=== PATIENT | female | born 1975 | race Caucasian/White ===

== ENCOUNTER → 2016-08-20 | Outpatient (REF) | payer OTHER | LOC: M SFHCWAGY 10:14 | PROVIDERS: ATTEND Nurse Practitioner Family | DX: Z12.4 Encounter for screening for malignant neoplasm of cervix (principal) ==

== ENCOUNTER → 2018-06-07 | Outpatient (CLI) | payer OTHER | LOC: M PLARAD 14:39 | DX: D18.09 Hemangioma of other sites (principal) | CPT/HCPCS: 78815 ==

== ENCOUNTER → 2019-01-26 | Outpatient (REF) | payer OTHER ==
[2019-02-01 14:22] LABS: HPV HYBRID CAPTURE II Negative (Negative)
== END ==
LOC: M LAB LCGH 11:55
PROVIDERS: ATTEND Obstetrics & Gynecology
DX: Z12.4 Encounter for screening for malignant neoplasm of cervix (principal)

== ENCOUNTER → 2021-11-04 | Outpatient (REF) | payer OTHER ==
[2021-11-04 19:30] LABS: APPEARANCE, URINE CLOUDY (CLEAR); BACTERIA, URINE AUTO 1+ (NEGATIVE); BILIRUBIN, URINE AUTO NEGATIVE (NEGATIVE); BLOOD, URINE BLOOD 1+ (NEGATIVE); COLOR, URINE YELLOW (YELLOW); GLUCOSE, URINE (UA) AUTO NEGATIVE (NEGATIVE); KETONE, URINE AUTO NEGATIVE (NEGATIVE); LEUKOCYTE ESTERASE, URINE AUTO 3+ (NEGATIVE); MUCUS, URINE SMALL (NEGATIVE); NITRITE, URINE AUTO NEGATIVE (NEGATIVE); PROTEIN, URINE AUTO NEGATIVE (NEGATIVE); RBC, URINE AUTO 34 /HPF (0-3); SPECIFIC GRAVITY URINE AUTO 1.005 (1.002-1.035); SQUAMOUS EPITHELIAL CELL UR AU 6 /HPF (0-6); UROBILINOGEN, URINE AUTO 0.2 mg/dL (0.0-2.0); WBC, URINE AUTO 51 /HPF (0-3)
== END ==
LOC: M LAB REF 18:36
PROVIDERS: ATTEND Physician Assistant Medical
DX: R30.0 Dysuria (principal)

== ENCOUNTER → 2022-02-16 | Outpatient (REF) | payer OTHER | LOC: M WUC 20:00 | PROVIDERS: ATTEND Physician Assistant | DX: N39.0 Urinary tract infection, site not specified (principal) ==

== ENCOUNTER → 2022-09-03 | Outpatient (CLI) | payer OTHER ==
[~2022-09-03] MED LIST: MIRT-10 PO; MONT10TA97 PO; ZOLO100T PO
== END ==
LOC: M LABSMTC 08:52
PROVIDERS: ATTEND Anesthesiology
DX: Z01.812 Encounter for preprocedural laboratory examination (principal); Z20.822 Contact with and (suspected) exposure to COVID-19

== ENCOUNTER 2022-09-08 08:16 | Observation (INO) | payer OTHER ==
[~2022-09-08] VITALS: Ht 172.7 cm; Wt 103.0 kg
[2022-09-08] VITALS (8 sets, daily range): BP systolic 129–164; BP diastolic 71–92
[~2022-09-08 08:16] MED LIST changes: +HEPARIN SOD (PORCINE) 5000UNITS/ML 1ML VIAL/SYRINGE SQ ONE; +ceFAZolin SOD 2 GM in IV 1 EA IV ONE
[2022-09-08] MEDS ORDERED: LR 1,000 ML IV SCH (09:00)
[2022-09-08] MEDS ORDERED: propofoL 200 MG/20 ML VIAL As Ordered ONE (09:27)
[2022-09-08] MEDS ORDERED: MIDAZOLAM INJ 2MG/2ML VIAL As Ordered ONE (09:27)
[2022-09-08] MEDS ORDERED: ONDANSETRON 4MG 2ML VIAL As Ordered ONE (09:27)
[2022-09-08] MEDS ORDERED: fentaNYL 100 MCG/2 ML INJECTION As Ordered ONE (09:27)
[2022-09-08] MEDS ORDERED: LIDOCAINE 2% 100MG/5ML SDV (FOR ANES.) As Ordered ONE (09:27)
[2022-09-08] MEDS ORDERED: BUPIVACAINE LIPOSOME/PF 1.3% 20ML VIAL (13.3MG/ML)(EXPAREL) As Ordered ONE (09:40)
[2022-09-08] MEDS ORDERED: GENTAMICIN SULF 80MG/2ML VIAL As Ordered ONE (09:40)
[2022-09-08] MEDS ORDERED: BUPIVACAINE HCL 0.25% 10ML VIAL As Ordered ONE (09:40)
[2022-09-08] MEDS ORDERED: LIDOCAINE 1% MDV 20ML VIAL As Ordered ONE (11:06)
[2022-09-08] MEDS ORDERED: EPINEPHrine INJ 1 MG/ML 1ML AMP As Ordered ONE (11:06)
[2022-09-08] MEDS ORDERED: ACETAMINOPHEN 1000MG 100ML IV BAG As Ordered ONE (11:11)
[2022-09-08] MEDS ORDERED: ROCURONIUM BROMIDE 50MG/5ML VIAL As Ordered ONE (11:37)
[2022-09-08] MEDS ORDERED: HYDROmorphone HCL 2MG/ML 1ML VIAL As Ordered ONE (11:57)
[2022-09-08] MEDS ORDERED: fentaNYL 100 MCG/2 ML INJECTION IV PRN (14:10)
[2022-09-08] MEDS ORDERED: ONDANSETRON 4MG 2ML VIAL IV PRN ×2 (14:10→14:35)
[2022-09-08] MEDS ORDERED: oxyCODONE 5MG TAB PO PRN (14:10)
[2022-09-08] MEDS ORDERED: METOCLOPRAMIDE INJ 10MG/2ML VIAL IV PRN (14:10)
[2022-09-08] MEDS ORDERED: HYDROMORPHONE HCL 0.5 MG/ 0.5 ML SYRINGE IV PRN (14:10)
[2022-09-08] MEDS ORDERED: PERCOCET 5MG/325MG TAB PO PRN (14:35)
[2022-09-08] MEDS ORDERED: ceFAZolin SOD 2 GM in IV 1 EA IV ONE (15:00)
[2022-09-08] MEDS: LR 1,000 ML IV SCH ×2 (17:11→21:16)
[2022-09-08] MEDS: ACETAMINOPHEN TAB 650MG DOSE (2X325MG) PO PRN (19:28)
[2022-09-09 02:22] VITALS: BP 114/65
[2022-09-09] MEDS: traMADol 50 MG TAB PO PRN ×2 (02:35→09:53)
[2022-09-09 05:29] VITALS: BP 115/66
[2022-09-09] MEDS: ACETAMINOPHEN TAB 650MG DOSE (2X325MG) PO PRN (05:44)
[2022-09-09 10:44] VITALS: BP 113/69
[2022-09-09] MEDS ORDERED: TRAM50TA2 PO (11:19)
== END 2022-09-09 12:15 | disposition home or self-care (01) ==
LOC: M SDC 08:16 → M MS5PR 08:17
PROVIDERS: ADMIT Plastic Surgery Surgery of the Hand; ATTEND Plastic Surgery Surgery of the Hand
DX: N62 Hypertrophy of breast (principal); F41.9 Anxiety disorder, unspecified; Z98.84 Bariatric surgery status; Z79.899 Other long term (current) drug therapy
CPT/HCPCS: 19318; 81025; 88305; 96365; 96375; C9290; J0131; J0171; J0690; J1100; J1170; J1580; J1644; J2250; J2405; J3010; S0020

== ENCOUNTER 2023-09-09 06:04 | Day surgery (SDC) | payer OTHER ==
[~2023-09-09] VITALS: Ht 172.7 cm; Wt 106.6 kg
[~2023-09-09 06:04] MED LIST changes: -HEPARIN SOD (PORCINE) 5000UNITS/ML 1ML VIAL/SYRINGE SQ ONE; +TRAM50TA2 PO; -ceFAZolin SOD 2 GM in IV 1 EA IV ONE
[2023-09-09] MEDS ORDERED: LR 1,000 ML IV SCH ×2 (06:25→09:15)
[2023-09-09] MEDS ORDERED: LIDOCAINE 2% 100MG/5ML SDV (FOR ANES.) As Ordered ONE (07:20)
[2023-09-09] MEDS ORDERED: ONDANSETRON 4MG 2ML VIAL As Ordered ONE (07:20)
[2023-09-09] MEDS ORDERED: propofoL 200 MG/20 ML VIAL As Ordered ONE (07:20)
[2023-09-09] MEDS ORDERED: dexmedeTOMIDine (4MCG/ML)200MCG/50ML BTL (PRECEDEX) As Ordered ONE (07:20)
[2023-09-09] MEDS ORDERED: MIDAZOLAM INJ 2MG/2ML VIAL As Ordered ONE (07:21)
[2023-09-09] MEDS ORDERED: fentaNYL 100 MCG/2 ML INJECTION As Ordered ONE (07:21)
[2023-09-09] MEDS: ceFAZolin SOD 2 GM in IV 1 EA IV ONE (07:37)
[2023-09-09] MEDS ORDERED: ACETAMINOPHEN 1000MG 100ML IV BAG As Ordered ONE (08:05)
[2023-09-09] MEDS ORDERED: GLYCOPYRROLATE INJ 0.2 MG/ML 2 ML VIAL As Ordered ONE (08:16)
[2023-09-09] MEDS: GENTAMICIN SULF 80MG/2ML VIAL As Ordered ONE (09:09)
[2023-09-09] MEDS ORDERED: fentaNYL 100 MCG/2 ML INJECTION IV PRN (09:15)
[2023-09-09] MEDS ORDERED: EPINEPHrine INJ 1 MG/ML 1ML AMP As Ordered ONE (09:34)
[2023-09-09] MEDS ORDERED: LIDOCAINE 1% MDV 20ML VIAL As Ordered ONE (09:34)
[2023-09-09] MEDS ORDERED: TRAM50TA2 PO (09:49)
[2023-09-09 11:00] VITALS: BP 136/88; TEMP 97; O2SAT 100
== END 2023-09-09 11:02 | disposition home or self-care (01) ==
LOC: M SDC 06:04
PROVIDERS: ATTEND Plastic Surgery Surgery of the Hand
DX: L90.5 Scar conditions and fibrosis of skin (principal); E55.9 Vitamin D deficiency, unspecified; Z98.84 Bariatric surgery status; Z79.899 Other long term (current) drug therapy; G43.909 Migraine, unspecified, not intractable, without status migrainosus; Z90.49 Acquired absence of other specified parts of digestive tract
CPT/HCPCS: 11406; 81025; 88302; C9290; J0131; J0665; J0690; J1100; J1580; J2250; J2405; J3010